=== PATIENT | female | born 1930 | race Caucasian/White ===

== ENCOUNTER 2019-09-28 06:13 | Inpatient (IN) | payer OTHER ==
[2019-09-28] VITALS (19 sets, daily range): BP systolic 120–157; BP diastolic 40–67
[~2019-09-28] VITALS: Ht 149.9 cm; Wt 43.1 kg
[2019-09-28 06:51] LABS: ABSOLUTE BASOPHILS 0.1 thou/uL (0.0-0.2); ABSOLUTE EOSINOPHILS 0.2 thou/uL (0.0-0.7); ABSOLUTE LYMPHOCYTES 0.9 thou/uL (0.8-5.3); ABSOLUTE MONOCYTES 0.5 thou/uL (0.0-1.2); ABSOLUTE NEUTROPHILS 5.2 thou/uL (1.6-8.1); BASOPHILS 1.6 %; EOSINOPHILS 2.8 %; HEMATOCRIT 25.8 % (37.0-47.0); LYMPHOCYTES 13.4 %; MCH 21.7 pg (26.0-34.0); MCHC 31.2 g/dL (28.0-37.0); MCV 69.4 fL (80.0-100.0); MPV 7.3 fl. (7.2-11.1); NUCLEATED RBCS 0 /100WBC; PLATELET COUNT* 378 thou/uL (150-400); POLYS 75.2 %; RBC 3.71 mil/uL (4.20-5.00); RDW-CV 19.3 % (10.5-14.5)
[2019-09-28 07:00] LABS: CALCIUM 8.3 mg/dL (8.5-10.1); CREATININE 1.2 mg/dL (0.6-1.3); POTASSIUM 4.8 mmol/L (3.5-5.1)
[2019-09-28 07:50] LABS: ANISOCYTOSIS 2+; HYPOCHROMASIA 1+; MICROCYTES 2+
--- NOTE | 2019-09-28 12:38 | EKG ---
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: : [id number] Requested By: Mykel Fountain Order Number: [id number] Yvette MD: Mariusz Reyes Measurements Intervals [place] Rate: 83 P: 83 GA: 172 QRS: -6 QRSD: 89 T: 49 QT: 399 QTc: 469 Interpretive Statements Sinus rhythm septal infarct, old Borderline ST depression, lateral leads No previous ECG available for comparison Electronically Signed On 09-28-2019 12:37:39 DIVISION ENGINEER by Mariusz Reyes [email or web address] <ELECTRONICALLY SIGNED> By: Mariusz Reyes MD, [facility] 09/28/19 1237 8 8 Mariusz Reyes MD, FACC /EPI
--- NOTE | 2019-09-28 19:29 | NUR ---
PATIENT STABLE. FAMILY AT BED SIDE. PATIENT VOIDED WITHOUT DIFFICULTY. aBLE TO TOLERATE PO INTAKE.
[2019-09-29] VITALS (12 sets, daily range): BP systolic 126–145; BP diastolic 47–57
[2019-09-29 06:09] LABS: HEMATOCRIT 23.3 % (37.0-47.0); HEMOGLOBIN 7.3 gm/dL (12.0-15.0); MCH 21.7 pg (26.0-34.0); MCHC 31.4 g/dL (28.0-37.0); MPV 7.4 fl. (7.2-11.1); POTASSIUM 4.5 mmol/L (3.5-5.1); RBC 3.38 mil/uL (4.20-5.00); RDW-CV 18.6 % (10.5-14.5); WBC 9.4 thou/uL (4.0-11.0)
--- NOTE | 2019-09-29 07:21 | NUR ---
Pt reports pain/discomfort to neck incision along with headache early in shift. Ice pack used as well as one dose of pain meds (see MAR). Reports onlly slight discomfort this am, and feeling better after getting up to use BSC. A&O X4. VSS. States she is hopeful of being discharged today. Unable to wean off 1L O2. SaO2 drops to mid-80s on RA when resting. Reports she had been on home O2 before, but it was "taken away because they said I didn't need it anymore." Will continue to monitor.
[2019-09-29] MEDS ORDERED: VITAMIN D32000 UNIT PO (10:00)
[2019-09-29] MEDS ORDERED: VITAMIN B-121000 MC2 SUBLING ×2 (10:01→12:57)
[2019-09-29] MEDS ORDERED: KLOR-CON 1010 MEQ PO (10:02)
[2019-09-29] MEDS ORDERED: LIPITOR 20 MG T20 M1 PO (10:04)
[2019-09-29] MEDS ORDERED: MIRALAX17 GM PO (10:07)
[2019-09-29] MEDS ORDERED: PROTONIX40 M1 PO (10:07)
[2019-09-29] MEDS ORDERED: VENTOLIN HFA INH8 GM INH (10:11)
[2019-09-29] MEDS ORDERED: CHILDREN'S ASPI81 M1 PO (10:13)
[2019-09-29] MEDS ORDERED: PLAVIX 75 MG TA75 MG PO (10:13)
[2019-09-29] MEDS ORDERED: NITROGLYCERIN0.4 MG SUBLING (10:14)
[2019-09-29] MEDS ORDERED: RANEXA500 MG PO (10:15)
[2019-09-29] MEDS ORDERED: IMDUR 30 MG TAB30 M1 PO (10:16)
[2019-09-29] MEDS ORDERED: SPIRONOLACTONE25 M1 PO (10:17)
[2019-09-29] MEDS ORDERED: ALBUTEROL2.5 MG/31 INH (10:56)
[2019-09-29] MEDS ORDERED: PROAIR RESPICL90 MCG INH (12:56)
[2019-09-29] MEDS ORDERED: LOPRESSOR50 MG PO (12:57)
[2019-09-29] MEDS ORDERED: ALBUTEROL2.5 MG/3 M INH (12:57)
[2019-09-29] MEDS ORDERED: STIOLTO RESPIMAT4 GM INH (12:57)
--- NOTE | 2019-09-29 13:35 | NUR ---
THIS POWDER GUARD ASSUMED CARE OF PT AT 0700 PT PROGRESSED TOWARD GOALS AND WAS ABLE TO BE DISCHARGED HOME INCISON LOOKS GOOD DRY AND INTACT WITH BRUISING NO C/O PAIN O2 SAT IN THE 90S ON RA. F/U APPT WITH DR. HOWELL ON 10/16/2019. ALL BELONGINGS SENT HOME WITH PT. IVS REMOVED PT DISCHARGED AT 1330.
--- NOTE | 2019-10-03 10:07 | PATH ---
[facility] [address] [place] [address] PATHOLOGY RPT PROCEDURE Name: GIACOMO RAMOS Room: [address] IN ..#: [id number] Admission: 09/28/19 Date of : 34 Discharge: 09/29/19 Report #: [id number] Path Case #: [id number] [facility] Accession Number: [id number] . 01 Material submitted: . carotid body - LEFT CAROTID PLAQUE. Modifiers: left . 01 Clinical history: . Left carotid stenosis. . 02 Diagnosis: Left carotid plaque: - Fibrointimal atherosclerotic plaque with prominent calcifications. . (NADEEM:latha; 10/02/2019) QMS 10/02/2019 1259 Local . 02 Electronically signed: . Carrillo Bentley MD, Pathologist NPI- [id number] . 01 Gross description: . Received in formalin labeled "Giacomo Ramos, left carotid plaque" are two tubular segments of young-white rubbery tissue measuring 2.2 x 0.9 cm and 1.7 x 0.7 cm. Approximately 80% of the specimen is comprised of yellow-young calcifications. Occup Ther cross-sections are submitted in cassette A1 following decalcification. ([facility]; 09/30/2019) [facility] 09/30/2019 1144 Local . 02 Pathologist provided ICD-10: I65.22 . 02 CPT . 957071, 217986 Specimen Comment: A courtesy copy of this report has been sent to [phone], [phone] Specimen Comment: [phone], Specimen Comment: Report sent to ,DR BUNDY / DR RUTLEDGE Specimen Comment: A duplicate report has been generated due to demographic updates. Performed at: 01 [facility] [address], [place], [place] [address] MD Jerrod Mistry MD Phone: [phone] Performed at: 02 [facility] [address] [address], [place], [place] [id number] MD Carrillo Bentley MD Phone: [phone]
--- NOTE | 2019-10-03 13:22 | OP ---
[facility] [address] [place] [address] OPERATIVE REPORT Name: GIACOMO RAMOS Room: [address]#: [id number] Admission: 09/28/19 Attend Phys: Vale Scales Discharge: 09/29/19 Date of : 34 Report #: [id number] THIS REPORT FOR: //name// CC: Saray Alexander DATE OF SERVICE: 09/28/2019 PREOPERATIVE DIAGNOSIS: Severe symptomatic left internal carotid artery stenosis. POSTOPERATIVE DIAGNOSIS: Severe symptomatic left internal carotid artery stenosis. PROCEDURES: 1. Left carotid endarterectomy with patch angioplasty. 2. Intraoperative ultrasound with interpretation. FINDINGS ON ULTRASOUND: 1. Normal waveform velocity identified in the common and internal carotid arteries. 2. Color flow imaging shows patent flow in the external carotid artery. 3. A jaimes-scale imaging shows no flaps or defects in the posterior wall. SURGEON: Mykel Fountain MD ZYGLO TECHNICIAN: CHRISSY Parker. COMPLICATIONS: None. ESTIMATED BLOOD LOSS: 100 mL. SPECIMEN: Includes plaque. ANESTHESIA: General. INDICATIONS FOR PROCEDURE: The patient is a very pleasant 89-year-old white female who suffered a left-sided stroke. She has severe left internal carotid artery stenosis. We are recommending left carotid endarterectomy today. Informed consent was obtained from the patient with risks including but not limited to bleeding, infection, need for further surgery, pain, , heart attack, stroke, cranial nerve injury. The patient understood these risks and was agreeable to proceed. DESCRIPTION OF PROCEDURE: The patient was taken to the [place] [address] OPERATIVE REPORT Name: RACHELGIACOMO L Room: [address] IN [facility].#: [id number] Admission: 09/28/19 Attend Phys: Vale Scales Discharge: 09/29/19 Date of : 34 Report #: [id number] position. After adequate general anesthesia was initiated, timeout was performed. The patient's left neck and chest were prepped and draped in usual sterile fashion. I created a transverse incision in the patient's left neck. Sharp and blunt dissections were carried down along the anterior border of the sternocleidomastoid muscle. I entered the carotid sheath. I controlled the common carotid artery as well as the branches of the internal and external carotid artery. I created a longitudinal arteriotomy from the common carotid artery onto the internal carotid artery. I performed endarterectomy in standard fashion using a [place] elevator and a pair of pickups. I took my time to remove the bits and pieces of plaque from posterior wall. I performed eversion endarterectomy of the external carotid artery. I got a feathered edge leading into the internal carotid artery. I closed my arteriotomy with a bovine pericardial patch and a running 6-0 Prolene suture. At the completion of the repair, there was adequate hemostasis and excellent blood flow into the internal and external carotid arteries. I performed intraoperative ultrasound with interpretation. Findings are noted above. I irrigated the wound bed with antibiotic saline corrected the heparin with protamine and closed the wound in multiple layers using 2-0 Vicryl, 3-0 Vicryl and Monocryl for the skin. I did use some Benedict as well for hemostasis. Incision was dressed with Dermabond. The patient tolerated the procedure well and was taken alert and awake to recovery room in good condition. All needle and instrument counts were correct at the end of the case. <ELECTRONICALLY SIGNED> By: Ash Alvarez DO 10/03/19 1322 1011 [id number] Fountain MD /johny
== END 2019-09-29 13:30 | disposition home or self-care (01) | DRG 38 ==
LOC: M.ICU 06:13 → M.TBA 06:13 → M.PRE 10:00 → M.ICU 12:27
PROVIDERS: Surgery Vascular Surgery; ADMIT Internal Medicine
DX: I65.22 Occlusion and stenosis of left carotid artery (principal); I42.9 Cardiomyopathy, unspecified; I25.10 Atherosclerotic heart disease of native coronary artery without angina pectoris; M81.0 Age-related osteoporosis without current pathological fracture; J44.9 Chronic obstructive pulmonary disease, unspecified; K21.9 Gastro-esophageal reflux disease without esophagitis; E78.5 Hyperlipidemia, unspecified; D53.9 Nutritional anemia, unspecified; I73.9 Peripheral vascular disease, unspecified; I12.9 Hypertensive chronic kidney disease with stage 1 through stage 4 chronic kidney disease, or unspecified chronic kidney disease; N18.3 Chronic kidney disease, stage 3 (moderate); F17.210 Nicotine dependence, cigarettes, uncomplicated; Z86.73 Personal history of transient ischemic attack (TIA), and cerebral infarction without residual deficits; Z79.82 Long term (current) use of aspirin; Z90.89 Acquired absence of other organs; Z79.891 Long term (current) use of opiate analgesic; Z79.899 Other long term (current) drug therapy; I25.2 Old myocardial infarction; Z95.5 Presence of coronary angioplasty implant and graft